=== PATIENT | male | born 1995 | race Caucasian/White ===

== ENCOUNTER → 2021-10-03 | Outpatient (REF) | payer OTHER ==
[2021-10-03 11:53] LABS: SEMEN APPEARANCE OPAQUE (OPAQUE); SEMEN VISCOSITY LIQUID (LIQUID); SEMEN VOLUME 1.7 ml (2.0-5.0); SEMEN pH 8.5 (7.0-8.0)
[2021-10-03 11:54] LABS: SPERM CONCENTRATION 20.8 M/ml (>=15.0); WBC CONCENTRATION <=1 M/ml (<=1 M/ml)
== END ==
LOC: M LAB REF 11:38
PROVIDERS: ATTEND Physician Assistant Medical
DX: Z31.41 Encounter for fertility testing (principal)

== ENCOUNTER → 2021-10-17 | Outpatient (CLI) | payer OTHER | LOC: M SLEEP 20:00 → EDUNIT# 10-22 20:00 | PROVIDERS: ATTEND Physician Assistant | DX: R06.83 Snoring (principal) ==